=== PATIENT | female | born 1950 | race Two or more races ===

== ENCOUNTER 2020-01-19 04:22 | Inpatient (IN) | payer OTHER ==
[~2020-01-19] VITALS: Ht 165.1 cm; Wt 78.1 kg
[2020-01-19] MEDS ORDERED: SODIUM CHLORIDE 0.9% 1,000 ML IV ONE (04:56)
[2020-01-19] MEDS ORDERED: ONDANSETRON HCL 4MG/2ML INJ IV STA (04:56)
[2020-01-19 05:19] LABS: BASOPHILS % 0.6 % (0.0-2.0); EOSINOPHILS % 0.4 % (0.0-5.0); HEMATOCRIT. 34.3 % (36.0-48.0); HEMOGLOBIN. 11.7 g/dL (12.0-16.0); LYMPHOCYTES % 20.7 % (20.0-50.0); MEAN CORPUSCULAR HEMOGLOBIN 30.5 pg (28.0-32.0); MEAN CORPUSCULAR VOLUME 89.6 fL (81.0-99.0); MEAN PLATELET VOLUME 8.9 fl (7.4-10.4); MONOCYTES % 5.6 % (2.0-8.0); NEUTROPHILS % 72.7 % (40.0-76.0); PLATELET 309 x1000/uL (130-400); RED BLOOD CELL COUNT 3.83 mill/uL (4.2-5.4); RED CELL DISTRIBUTION WIDTH 14.4 % (11.6-14.6)
[2020-01-19 05:24] LABS: PROTHROMBIN TIME 10.6 sec (9.6-11.0)
[2020-01-19 05:27] LABS: CHLORIDE 84 mEq/L (98-107)
[2020-01-19 05:32] LABS: ETHANOL BLOOD < 10 mg/dL
[2020-01-19] MEDS ORDERED: SODIUM CHLORIDE 3% 500ML IV SOLN IV ONE (06:00)
[2020-01-19] MEDS ORDERED: IOHEXOL-350 100 ML BOTTLE ONE (06:14)
[2020-01-19] MEDS ORDERED: SODIUM CHLORIDE 3% 100 ML IV SCH (06:15)
[2020-01-19 06:41] LABS: CLARITY URINE CLEAR (CLEAR); COLOR URINE YELLOW (YELLOW); KETONES URINE TRACE (NEGATIVE); LEUKOCYTE ESTERASE URINE NEGATIVE (NEGATIVE); NITRITE URINE NEGATIVE (NEGATIVE); OCCULT BLOOD URINE 2+ (NEGATIVE); PH URINE 6.5 (4.5-8.0); PROTEIN URINE NEGATIVE (NEGATIVE); SPECIFIC GRAVITY URINE 1.016 (1.005-1.030); UROBILINOGEN URINE 0.2 E.U./dL (0.2-1.0)
[2020-01-19 06:56] LABS: *AMPHETAMINES SCREEN URINE NEGATIVE (NEGATIVE)
[2020-01-19 06:57] LABS: *BARBITURATES SCREEN URINE NEGATIVE (NEGATIVE); *BENZODIAZEPINES SCREEN URINE NEGATIVE (NEGATIVE); *COCAINE SCREEN URINE NEGATIVE (NEGATIVE); METHADONE URINE SCREEN NEGATIVE (NEGATIVE); OPIATES URINE SCREEN NEGATIVE (NEGATIVE); PHENCYCLIDINE URINE SCREEN NEGATIVE (NEGATIVE)
[2020-01-19 06:58] LABS: CANNABINOID URINE SCREEN NEGATIVE (NEGATIVE)
[2020-01-19] MEDS ORDERED: ACETAMINOPHEN 325MG TABLET PO PRN (08:15)
[2020-01-19] MEDS ORDERED: CLONIDINE 0.1MG TABLET PO PRN (08:15)
[2020-01-19] MEDS ORDERED: IPRATROPIUM/ALBUTEROL 0.5-3(2.5)MG/3ML NEB HHN PRN (08:15)
[2020-01-19] MEDS ORDERED: DIPHENHYDRAMINE 50MG/ML VIAL IV PRN (08:15)
[2020-01-19 08:59] LABS: PHOSPHORUS 1.5 mg/dL (2.5-4.9)
[2020-01-19] MEDS: ENOXAPARIN 40MG/0.4ML SYR SUBCUT SCH (09:44)
[2020-01-19 10:45] LABS: CHLORIDE 90 mEq/L (98-107)
[2020-01-19] MEDS ORDERED: MAGNESIUM 4 G PREMIX 100 ML IV SCH (11:00)
[2020-01-19] MEDS ORDERED: SODIUM PHOS,M-BASIC-D-BASIC 30 MM in DEXT 5% WATER 500 ML IV SCH (11:00)
[2020-01-19 15:52] LABS: SODIUM URINE RANDOM 32 mEq/L
[2020-01-19 16:05] VITALS: BP 128/71
[2020-01-19] MEDS ORDERED: DEXTROSE 50% WATER 50ML SYRINGE IV PRN ×2 (16:30→23:30)
[2020-01-19] MEDS ORDERED: BLOOD SUGAR DIAGNOSTIC STRIP TEST SCH (16:50)
[2020-01-19] MEDS ORDERED: INSULIN LISPRO (LOW DOSE) 100 UNITS/ML SUBCUT SCH (17:20)
[2020-01-19 18:17] VITALS: BP 125/74
[2020-01-19 20:00] VITALS: BP 104/68
[2020-01-19 20:31] LABS: CHLORIDE 101 mEq/L (98-107)
[2020-01-19 22:00] VITALS: BP 102/46
[2020-01-19] MEDS: DEXTROSE 5% WATER 1,000 ML IV SCH (22:40)
[2020-01-19] MEDS ORDERED: DESMOPRESSIN ACETATE IVPB 1 MCG in SODIUM CHLORIDE 0.9% 50 ML IV ONE (23:30)
[2020-01-20] VITALS (20 sets, daily range): BP systolic 100–142; BP diastolic 43–87
[2020-01-20] MEDS: BLOOD SUGAR DIAGNOSTIC STRIP TEST SCH ×4 (06:26→21:26)
[2020-01-20 06:57] LABS: CHLORIDE 103 mEq/L (98-107)
[2020-01-20 07:09] LABS: PHOSPHORUS 3.5 mg/dL (2.5-4.9)
[2020-01-20 07:10] LABS: LDL CHOLESTEROL 102 mg/dL (5-100)
[2020-01-20 07:12] LABS: HDL CHOLESTEROL 43 mg/dL (40-59)
[2020-01-20 07:17] LABS: BASOPHILS % 0.7 % (0.0-2.0); EOSINOPHILS % 1.2 % (0.0-5.0); HEMOGLOBIN. 11.6 g/dL (12.0-16.0); LYMPHOCYTES % 19.5 % (20.0-50.0); MEAN CORPUSCULAR HEMOGLOBIN 30.1 pg (28.0-32.0); MEAN CORPUSCULAR VOLUME 90.9 fL (81.0-99.0); MEAN PLATELET VOLUME 9.1 fl (7.4-10.4); MONOCYTES % 9.5 % (2.0-8.0); NEUTROPHILS % 69.1 % (40.0-76.0); PLATELET 270 x1000/uL (130-400); RED BLOOD CELL COUNT 3.85 mill/uL (4.2-5.4); RED CELL DISTRIBUTION WIDTH 14.9 % (11.6-14.6)
[2020-01-20] MEDS: INSULIN LISPRO 100 UNITS/ML SUBCUT SCH ×4 (07:20→21:00)
[2020-01-20] MEDS ORDERED: LEVO75TA PO (08:43)
[2020-01-20] MEDS: ENOXAPARIN 40MG/0.4ML SYR SUBCUT SCH (09:22)
[2020-01-20] MEDS ORDERED: ASPI-1497 PO (11:20)
[2020-01-20] MEDS ORDERED: ATOR20TA65 PO (11:20)
[2020-01-20] MEDS: HYDROCODONE/ACETAMINOPHEN 5/325MG TABLET PO PRN (12:51)
[2020-01-20] MEDS: DEXTROSE 5% WATER 1,000 ML IV SCH (12:52)
[2020-01-20] MEDS: LEVOTHYROXINE SODIUM 75MCG TABLET PO SCH (14:06)
[2020-01-20 16:54] LABS: CHLORIDE 100 mEq/L (98-107)
[2020-01-20] MEDS: ONDANSETRON HCL 4MG/2ML INJ IV PRN (16:57)
[2020-01-21] VITALS (12 sets, daily range): BP systolic 107–130; BP diastolic 57–73
[2020-01-21] MEDS: DEXTROSE 5% WATER 1,000 ML IV SCH (01:24)
[2020-01-21 06:45] LABS: BASOPHILS % 0.5 % (0.0-2.0); EOSINOPHILS % 1.5 % (0.0-5.0); HEMATOCRIT. 34.3 % (36.0-48.0); HEMOGLOBIN. 11.5 g/dL (12.0-16.0); LYMPHOCYTES % 19.5 % (20.0-50.0); MEAN CORPUSCULAR HEMOGLOBIN 30.5 pg (28.0-32.0); MEAN CORPUSCULAR VOLUME 90.9 fL (81.0-99.0); MEAN PLATELET VOLUME 8.9 fl (7.4-10.4); MONOCYTES % 8.9 % (2.0-8.0); NEUTROPHILS % 69.6 % (40.0-76.0); PLATELET 258 x1000/uL (130-400); RED BLOOD CELL COUNT 3.78 mill/uL (4.2-5.4); RED CELL DISTRIBUTION WIDTH 14.7 % (11.6-14.6)
[2020-01-21] MEDS: BLOOD SUGAR DIAGNOSTIC STRIP TEST SCH ×4 (06:52→20:11)
[2020-01-21] MEDS: INSULIN LISPRO 100 UNITS/ML SUBCUT SCH ×4 (07:20→20:11)
[2020-01-21 07:56] LABS: CHLORIDE 98 mEq/L (98-107)
[2020-01-21] MEDS: HYDROCODONE/ACETAMINOPHEN 5/325MG TABLET PO PRN ×2 (08:35→19:36)
[2020-01-21] MEDS: LEVOTHYROXINE SODIUM 75MCG TABLET PO SCH (08:35)
[2020-01-21] MEDS: ENOXAPARIN 40MG/0.4ML SYR SUBCUT SCH (08:36)
[2020-01-21] MEDS: ONDANSETRON HCL 4MG/2ML INJ IV PRN (16:24)
[2020-01-22] MEDS ORDERED: LEVOTHYROXINE SODIUM 75MCG TABLET PO SCH (06:50)
== END 2020-01-21 10:46 | disposition short-term general hospital (02) | DRG 640 ==
LOC: EDSEX 04:22 → ER 04:54 → 3WST 06:01 → EDBEDREQTM 06:06 → EDBEDREQ 06:06 → EDBEDREQSVC 06:06 → ENRESERV 15:01
PROVIDERS: ADMIT Internal Medicine; ATTEND Internal Medicine
DX: E87.1 Hypo-osmolality and hyponatremia (principal); G93.41 Metabolic encephalopathy; E44.1 Mild protein-calorie malnutrition; J84.9 Interstitial pulmonary disease, unspecified; E78.5 Hyperlipidemia, unspecified; E03.9 Hypothyroidism, unspecified; E83.39 Other disorders of phosphorus metabolism; E11.65 Type 2 diabetes mellitus with hyperglycemia; E83.42 Hypomagnesemia; I10 Essential (primary) hypertension; Z20.828 Contact with and (suspected) exposure to other viral communicable diseases; Z68.28 Body mass index [BMI] 28.0-28.9, adult; Z88.0 Allergy status to penicillin; Z90.49 Acquired absence of other specified parts of digestive tract; Z82.49 Family history of ischemic heart disease and other diseases of the circulatory system
CPT/HCPCS: 36415; 70496; 70498; 71045; 73560; 80048; 80053; 80061; 80305; 80320; 81003; 82140; 82533; 82962; 83605; 83735; 83930; 83935; 84100; 84300; 84443; 84484; 85025; 86850; 86900; 87426; 93005; 93970; 99291; J1650; J2405; J2597; J3475; J3490; J7030; J7060; J7070; Q9967; G0480

== ENCOUNTER 2022-11-20 17:42 | Emergency (ER) | payer OTHER ==
[~2022-11-20] VITALS: Ht 167.6 cm; Wt 80.0 kg
[~2022-11-20 17:42] MED LIST: ASPI-1497 PO; ATOR20TA65 PO; LEVO75TA PO
[2022-11-20 17:46] VITALS: BP 151/67; O2SAT 100
[2022-11-20 18:35] LABS: BASOPHILS % 0.6 % (0.0-2.0); EOSINOPHILS % 2.3 % (0.0-5.0); HEMATOCRIT. 34.5 % (36.0-48.0); HEMOGLOBIN. 11.7 g/dL (12.0-16.0); LYMPHOCYTES % 31.1 % (20.0-50.0); MEAN CORPUSCULAR HEMOGLOBIN 31.2 pg (28.0-32.0); MEAN CORPUSCULAR VOLUME 92.3 fL (81.0-99.0); MEAN PLATELET VOLUME 8.9 fl (7.4-10.4); MONOCYTES % 8.4 % (2.0-8.0); NEUTROPHILS % 57.6 % (40.0-76.0); PLATELET 311 x1000/uL (130-400); RED BLOOD CELL COUNT 3.74 mill/uL (4.2-5.4); RED CELL DISTRIBUTION WIDTH 14.6 % (11.6-14.6)
[2022-11-20 18:55] LABS: CHLORIDE 107 mEq/L (98-107)
[2022-11-21 03:55] VITALS: PULSE 62; RESP 16; TEMP 98.6
== END 2022-11-21 03:57 | disposition home or self-care (01) ==
LOC: ER 20:27
DX: R00.2 Palpitations (principal); I48.91 Unspecified atrial fibrillation; E78.00 Pure hypercholesterolemia, unspecified
CPT/HCPCS: 36415; 71045; 80053; 85025; 93005; 99285